=== PATIENT | male | born 1945 | race Caucasian/White ===

== ENCOUNTER 2019-10-13 11:49 | Emergency (ER) | payer BC ==
--- NOTE | 2019-10-13 12:19 | Emergency Department Record ---
History of Present Illness - General Chief complaint: Edema Stated complaint: SWOLLEN ARMS Time Seen by Provider: 10/13/19 12:08 Source: Patient Mode of Arrival: Wheelchair - History of Present Illness Initial comments: The patient states he has had 4-5 days of both arms and hands and both legs swelling. He is a stage IV COPD patient on home oxygen and steroid shots every 2 weeks. He also take HCTZ daily and has doubled his dose since yesterday because of the swelling. He states he has no fevers, chills, and no changes in sputum color or respiratory distress. He states he is breathing at his baseline. Many years ago he had a PE in his lungs. He had a "stroke in his eye" and takes a baby aspirin for that, but no other blood thinners. MD Complaint: Extremity swelling Onset/Timin Improves with: Nothing Worsens with: Nothing - Related Data Previous Rx's Medication Instructions Recorded Azithromycin [Zithromax] 500 mg PO DAILY #5 tab 10/13/19 Allergies Allergy/AdvReac Type Severity Reaction Status Date / Time ciprofloxacin [From Cipro] Allergy Severe DIFFICULTY Unverified 10/10/18 09:56 BREATHING ciprofloxacin HCl Allergy Severe DIFFICULTY Unverified 10/10/18 09:56 [From Cipro] BREATHING roflumilast [From DALIRESP] Allergy Intermediate DIFFICULTY Unverified 10/10/18 09:56 BREATHING levofloxacin [LEVOFLOXACIN] Allergy Unknown RASH Unverified 10/10/18 09:56 acetaminophen [From [place]] AdvReac Intermediate VOMITING Unverified 10/10/18 09:56 hydrocodone bitartrate AdvReac Intermediate VOMITING Unverified 10/10/18 09:56 [From [place]] Travel Screening - Travel/Exposure Within Last 30 Days Have you traveled within the last 30 days?: No - Travel/Exposure Within Last Year Have you traveled outside the [place] in the last year?: No - Additonal Travel Details Have you been exposed to anyone with a communicable illness?: No - Travel Symptoms Symptom Screening: None Review of Systems Reviewed: No additional complaints except as noted below Constitutional: Reports: As per HPI. Denies: Chills, Fever, Malaise, Night sweats, Weakness, Weight change Eyes: Reports: As per HPI. Denies: Eye discharge, Eye pain, Photophobia, Vision change ENT: Reports: As per HPI. Denies: Congestion, Dental pain, Ear pain, Epistaxis, Hearing loss, Throat pain Respiratory: Reports: As per HPI. Denies: Cough, Dyspnea, Hemoptysis, Stridor, Wheezes Cardiovascular: Reports: As per HPI. Denies: Arrhythmia, Chest pain, Dyspnea on exertion, Edema, Murmurs, Orthopnea, Palpitations, Paroxysmal nocturnal dyspnea, Rheumatic Fever, Syncope Endocrine: Reports: As per HPI. Denies: Fatigue, Heat or cold intolerance, Polydipsia, Polyuria Gastrointestinal: Reports: As per HPI. Denies: Abdominal pain, Constipation, Diarrhea, Hematemesis, Hematochezia, Melena, Nausea, Vomiting Genitourinary: Reports: As per HPI. Denies: Dysuria, Frequency, Hematuria, Incontinence, Retention, Testicular pain, Testicular mass, Urgency Musculoskeletal: Reports: As per HPI. Denies: Arthralgia, Back pain, Gout, Joint swelling, Myalgia, Neck pain Skin: Reports: As per HPI. Denies: Bruising, Change in color, Change in hair/nails, Lesions, Pruritus, Rash Neurological: Reports: As per HPI. Denies: Abnormal gait, Confusion, Headache, Numbness, Paresthesias, Seizure, Tingling, Tremors, Vertigo, Weakness Psychiatric: Reports: As per HPI. Denies: Anxiety, Auditory hallucinations, Depression, Homicidal thoughts, Suicidal thoughts, Visual hallucinations Hematological/Lymphatic: Reports: As per HPI. Denies: Anemia, Blood Clots, Easy bleeding, Easy bruising, Swollen glands Past Medical History - SOCIAL HISTORY Smoking Status: Former smoker Alcohol Use: None Drug Use: None - RESPIRATORY Hx Respiratory Disorders: Yes Hx Bronchitis: Yes Hx COPD: Yes Hx Pneumonia: Yes Hx Sleep Apnea: Yes Hx of CPAP: Yes ("supposed to") - CARDIOVASCULAR Hx Cardio Disorders: Yes Hx Hypertension: Yes - NEURO Hx Neuro Disorders: Yes Hx CVA: Yes - GI Hx GI Disorders: No - Hx Genitourinary Disorders: Yes Hx Prostate Problems: Yes ("implant in bladder") - ENDOCRINE Hx Endocrine Disorders: Yes Hx Diabetes: Yes Hx Thyroid Disease: No - MUSCULOSKELETAL Hx Musculoskeletal Disorders: Yes Comment:: 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 negative: Conjunctival injection, Nystagmus Pupils: Normal accommodation - ENT ENT exam: Normal exam, Mucous membranes moist, Normal external ear exam, Normal orophraynx, TM's normal bilaterally Ear exam: Normal external inspection. negative: External canal tenderness Nasal Exam: Normal inspection. negative: Discharge, Sinus tenderness Mouth exam: Normal external inspection, Tongue normal Teeth exam: Normal inspection. negative: Dental caries Throat exam: Normal inspection. negative: Tonsillar erythema, Tonsillar exudate - Neck Neck exam: Normal inspection, Full ROM. negative: Lymphadenopathy, Meningismus, Tenderness - Respiratory Respiratory exam: Decreased breath sounds, Prolonged expiratory, Other (Barrel chested, Increased AP diameter from endstage COPD). negative: Respiratory distress - Cardiovascular Cardiovascular Exam: Regular rate, Normal rhythm, Normal heart sounds - GI/Abdominal GI/Abdominal exam: Soft, Normal bowel sounds, Other (protruberant abdomen with NO tenderness). negative: Tenderness - Rectal Rectal exam: Deferred - exam: Deferred - Extremities Extremities exam: Normal inspection, Full ROM, Normal capillary refill, Pedal edema (bilateral 2+ pitting edema of legs up to below knees; also upper extremities are 1+edema, right greater than left arm, with friable thin skin from chronic steroid use). negative: Calf tenderness, Tenderness - Back Back exam: Reports: Normal inspection, Full ROM. Denies: Muscle spasm, Rash noted, Tenderness - Neurological Neurological exam: Alert, Normal gait, Oriented X3, Reflexes normal - Psychiatric Psychiatric exam: Normal affect, Normal mood - Skin Skin exam: Dry, Intact, Normal color, Warm Course Vital Signs 10/13/19 11:51 Temperature 97.5 F L Pulse Rate 98 H Respiratory 18 Rate Blood Pressure 147/113 Pulse Ox 99 - Reevaluation(s) Reevaluation #1: The patient states the last time he was in the hospital he was told he had something in his left chest that they wanted to do surgery on to remove, but his family doctor said don't. He said if it gets bigger he may need surgery on it but to do nothing now. 10/13/19 14:57 Reevaluation #2: Patient was taken to CT scan for his CTA. Contrast was injected yet it didn't show up on scan. No tissue induration and IV is flushing nicely. 250bolus NS and patient will be taken back for scan. BUN Cr and GFR normal. 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 This chart is to be scanned into this record. 10/13/19 16:19 Reevaluation #4: IV site was changed to other arm, 250CCNS bolus given and patient returned to CT scan. Left arm is nontender, no induration, and warm blankets applied. 10/13/19 16:38 10/13/19 17:31 Recheck of patient in CT scan. contrast on second attempt showing up well of chest scan. Recheck of other arm, Left side is now mildly indurated with loose skin around area and strong distal pulses, color, and temperature. Patient states he has no pain in that arm. Explained to patient that the contrast went into his arm tissue and that he is at risk of complications such as compartment syndrome, cellulitis, or other complications. It was recommended that he stay in the hospital overnight to observe that arm. Patient refuses admission. He does agree to recheck his arm here tomorrow, and to ice the area at home tonight. He lives with his 18 ear old granddaughter who will be home, and he drives himself places regularly. Patient agrees to ice his arm tonight and to come back tomorrow for recheck of his arm. Luzma HATCH examined arm with me and will recheck it tomorrow as she is the one professional here now who will also be here tomorrow. Awaiting CTA report. Medical Decision Making - Management Options MDM Management: No Additional Work-up Planned (left AMA) - Data Complexity MDM Data: Labs Ordered and/or Reviewed, X-Ray Ordered and/or Reviewed (Venous dopplers all negative times 4 extremities per radiologist.CTA chest No PE, multiple chronic changes, 4.2 by 2.1 posterior middle lobe consolidation of pneumonitis.), EKG Ordered and/or Reviewed (EKG: normal EKG at 84/min. no acutechanges) - Lab Data Result diagrams: 10/13/19 14:45 10/13/19 12:10 - EKG Data -: EKG Interpreted by Me EKG: No Acute Changes Disposition Disposition: Discharge Clinical Impression: Edema of all four extremities, Right arm pain, Pneumonitis Disposition: Against Medical Advice Condition: (1) Good Instructions: Leg Edema (ED) Additional Instructions: Ice to right upper arm area where contrast infiltrated. Recheck arm here tomorrow without fail. Take home one lasix pill to take when you get home. ZPack as directed until gone. Prescriptions: Azithromycin [Zithromax] 500 mg PO DAILY #5 tab Quality - Quality Measures Quality Measures: N/A - Blood Pressure Screening Does Patient Have Any of the Following: No Blood Pressure Classification: Hypertensive Reading Systolic Measurement: 147 Diastolic Measurement: 113 Screening for High Blood Pressure: < Pre-Hypertensive BP, F/U Documented > [G8950] Pre-Hypertensive Follow-up Interventions: Follow-up with rescreen every year., Lifestyle modifications., Referral to alternative/primary care provider. Lifestyle Modification: Weight Reduction, Dietary Approaches to Stop Hypertension (DASH) Eating Plan, Dietary Sodium Restriction, Increased Physical Activity, Moderation in alcohol (ETOH) consumption
[2019-10-13] MEDS ORDERED: IPRATROPIUM/ALBUTEROL (0.5MG/3MG) NEB INH ONE (12:24)
[2019-10-13 12:53] LABS: BLOOD UREA NITROGEN 22 mg/dL (8-23); CREATININE 0.9 mg/dL (0.7-1.2); EST GLOMERULAR FILTRATION RATE > 60 mL/min; TOTAL PROTEIN 6.5 g/dL (6.6-8.7)
[2019-10-13 12:55] LABS: GLUCOSE,RANDOM 108 mg/dL (74-109)
[2019-10-13 12:56] LABS: INR 0.9; PROTHROMBIN TIME (PATIENT) 9.6 SECONDS (9.5-12.1)
[2019-10-13 12:58] LABS: ALB/GLOB RATIO 1.2 (1.1-1.8); ALBUMIN 3.6 g/dL (4.0-5.0); ALKALINE PHOSPHATASE 80 U/L (40-129); ALT/SGPT 28 U/L (<41); AST/SGOT 34 U/L (10.0-50.0)
--- NOTE | 2019-10-13 14:50 | ULTRASOUND REPORT ---
EXAMINATION: Complete Right and Left Lower Extremity Venous Duplex Doppler Ultrasound EXAM DATE: 10/13/2019 2:47 PM TECHNIQUE: Real-time B-mode imaging with and without compression was used to evaluate the right and left lower extremity for deep venous thrombosis (DVT). Duplex Doppler with color and spectral Dopple r was used. INDICATION: swelling in legs COMPARISON: None Right Lower Extremity Findings: Right Common Femoral Vein: No DVT. Right Femoral Vein: No DVT. Right Popliteal Vein: No DVT. Right Proximal Deep Femoral Vein: No DVT. Right Posterior Tibial Veins: No DVT. Right Peroneal Veins: No DVT. Right proximal Greater Saphenous Vein: No thrombus. Left Lower Extremity Findings: Left Common Femoral Vein: No DVT. Left Femoral Vein: No DVT. Left Popliteal Vein: No DVT. Left Proximal Deep Femoral Vein: No DVT. Left Posterior Tibial Veins: No DVT. Left Peroneal Veins: No DVT. Left proximal Greater Saphenous Vein: No thrombus. Duplex Doppler: Spectral Doppler waveforms show bilateral normal respiratory phasicity in the common femoral veins. Additional Findings: None. IMPRESSION: There is no deep venous thrombosis in the visualized deep veins of the right or left lower extremity. Dictated by: Thomas Lacey MD on 10/13/2019 2:48 PM. .
--- NOTE | 2019-10-13 14:51 | ULTRASOUND REPORT ---
EXAMINATION: Complete Bilateral Upper Extremity Venous Duplex Doppler Ultrasound EXAM DATE: 10/13/2019 2:47 PM TECHNIQUE: Real-time B-mode imaging with and without compression was used to evaluate the right and left upper extremity for deep venous thrombosis (DVT). Duplex Doppler with color and spectral Dopple r was used. INDICATION: swelling in legs COMPARISON: None Right Upper Extremity Findings: Right Internal Jugular Vein: No thrombus. Right Subclavian Vein: No thrombus. Right Axillary Vein: No thrombus. Right Brachial Vein: No thrombus. Right Radial Vein: No thrombus. Right Ulnar Vein: No thrombus. Superficial Veins: Right Basilic Vein: No thrombus. Right Cephalic Vein: No thrombus. Left Upper Extremity Findings: Left Internal Jugular Vein: No thrombus. Left Subclavian Vein: No thrombus. Left Axillary Vein: No thrombus. Left Brachial Vein: No thrombus. Left Radial Vein: No thrombus. Left Ulnar Vein: No thrombus. Superficial Veins: Left Basilic Vein: No thrombus. Left Cephalic Vein: No thrombus. ADDITIONAL FINDINGS: Normal cardiac pulsatility is present in the subclavian veins. IMPRESSION: No evidence of DVT within either upper extremity. Dictated by: Thomas Lacey MD on 10/13/2019 2:49 PM. .
[2019-10-13 14:55] LABS: ABSOLUTE NEUTROPHIL COUNT 7.62; HEMATOCRIT 36.4 % (42.0-52.0); HEMOGLOBIN 10.3 gm/dl (14.0-18.0); MEAN CELL VOLUME 95.3 fl (81-97); MEAN CORPUSCULAR HGB CONC 28.3 g/dl (32-36); MEAN PLATELET VOLUME 9.1 fl (7.4-10.4); PLATELET COUNT 432 K/uL (130-400); RED BLOOD COUNT 3.82 M/uL (4.40-5.70); RED CELL DISTRIBUTION WIDTH 15.6 % (11.5-14.5); WHITE BLOOD COUNT W/O DIFF 12.4 K/uL (4.2-12.2)
[2019-10-13 15:00] LABS: MEAN CORPUSCULAR HEMOGLOBIN 26.9 pg (27-33)
[2019-10-13 15:19] LABS: URINE APPEARANCE CLEAR; URINE BILIRUBIN NEGATIVE (NEGATIVE); URINE COLOR YELLOW; URINE GLUCOSE (UA) NEGATIVE (NEGATIVE); URINE KETONE NEGATIVE (NEGATIVE)
[2019-10-13 15:20] LABS: URINE BLOOD NEGATIVE (NEGATIVE); URINE LEUKOCYTE ESTERASE NEGATIVE (NEGATIVE); URINE NITRITE NEGATIVE (NEGATIVE); URINE UROBILINOGEN 0.2 E.U./dL (0.20 - 1.00)
[2019-10-13 15:53] LABS: ANISOCYTOSIS 1+; PLATELET ESTIMATE INCREASED (NORMAL)
[2019-10-13] MEDS ORDERED: 0.9 % SODIUM CHLORIDE 500ML 250 ML IV SCH (16:30)
--- NOTE | 2019-10-13 17:47 | CT ANGIOGRAM REPORT ---
EXAMINATION: CT Angiography of the Thorax EXAM DATE: 10/13/2019 5:32 PM TECHNIQUE: Standard protocol CT angiogram images were obtained through the chest following the admini stration of intravenous contrast. Coronal and sagittal MIP 3-D reformations were performed. IV Contrast: The amount and type of contrast are recorded in the medical record. INDICATION: elevated d dimer. COMPARISON: Chest x-ray 08/04/2016 ENCOUNTER: Not applicable FINDINGS: Pulmonary Artery: No pulmonary embolism is present. Aorta: No thoracic aortic aneurysm or dissection is present. Moderate to extensive atheromatous dunham ge. Right Heart Strain: None. Heart : The heart is nonenlarged and there is no pericardial effusion. Moderate coronary artery calc ification. Lanette and Mediastinum: No lymphadenopathy. Lung Parenchyma: Extensive predominantly upper lobe centrilobular and bullous emphysema. There is co nsolidative change in the posterior medial right lower lobe measuring 4.2 x 2.1 cm transverse which m ay reflect pneumonitis. The upper lungs are clear. Central Airways: . Mild bronchiectasis in the lower lobes Pleural Effusion: None. Upper Abdomen: Unremarkable. Musculoskeletal and Chest Wall: Chronic moderate osteoporotic wedge deformity of the T6 vertebral bod y. No lytic or blastic lesion. IMPRESSION: 1. No PE identified. No thoracic aortic dissection. 2. Advanced emphysema. Moderate to focal consolidation in the posterior medial right lower lobe measu ring 4.2 x 2.1 cm which may reflect pneumonitis. 3. Moderate coronary artery calcification. 4. Mild bronchiectasis in the lower lobes. 5. Moderate chronic osteoporotic compression deformity of the T6 vertebral body. Dictated by: Db Landis MD on 10/13/2019 5:40 PM. .
[2019-10-13] MEDS ORDERED: FUROSEMIDE 40 MG TABLET PO ONE (17:58)
== END 2019-10-13 18:17 | disposition left against medical advice (07) ==
LOC: ER 11:49
DX: J18.1 Lobar pneumonia, unspecified organism (principal); J44.9 Chronic obstructive pulmonary disease, unspecified; M79.622 Pain in left upper arm; M79.621 Pain in right upper arm; I71.4 Abdominal aortic aneurysm, without rupture; Z86.711 Personal history of pulmonary embolism; I10 Essential (primary) hypertension; Z87.891 Personal history of nicotine dependence; E11.9 Type 2 diabetes mellitus without complications; Z99.81 Dependence on supplemental oxygen
CPT/HCPCS: 71275; 80053; 81003; 83880; 85027; 85379; 85610; 85730; 93005; 93010; 93970; 94640; 99284; J7040

== ENCOUNTER 2019-10-14 11:06 | Emergency (ER) | payer BC ==
--- NOTE | 2019-10-14 11:37 | Emergency Department Record ---
History of Present Illness - General Chief Complaint: Recheck - Other Stated Complaint: SWELLING HANDS FEET Time Seen by Provider: 10/14/19 11:17 Source: Patient, RN notes reviewed - History of Present Illness Initial Comments: pateint her for recheck of his left arm and IV contrast went SQ and his left arm is edematous more than yesterday and no left arm pain at rest and no pain in the arm with moving his ringers or wrist and there is some vesicles on the ulnar side of the arm. His other extremities are also a edematous and that was happening before the CTA Chest. breathing is at baseline and he uses 2 liters at rest and 4 liter with activity Onset/Timin -: Days(s) Initial Visit For: Other Returns Today for: Other Symptoms Since Prior Visit: No new symptoms, Worsening swelling Associated Symptoms: None - Related Data Previous Rx's Medication Instructions Recorded Azithromycin [Zithromax] 500 mg PO DAILY #5 tab 10/13/19 Allergies Allergy/AdvReac Type Severity Reaction Status Date / Time ciprofloxacin [From Cipro] Allergy Severe DIFFICULTY Unverified 10/10/18 09:56 BREATHING ciprofloxacin HCl Allergy Severe DIFFICULTY Unverified 10/10/18 09:56 [From Cipro] BREATHING roflumilast [From DALIRESP] Allergy Intermediate DIFFICULTY Unverified 10/10/18 09:56 BREATHING levofloxacin [LEVOFLOXACIN] Allergy Unknown RASH Unverified 10/10/18 09:56 acetaminophen [From [place]] AdvReac Intermediate VOMITING Unverified 10/10/18 09:56 hydrocodone bitartrate AdvReac Intermediate VOMITING Unverified 10/10/18 09:56 [From [place]] Travel Screening - Travel/Exposure Within Last 30 Days Have you traveled within the last 30 days?: No Review of Systems Reviewed: No additional complaints except as noted below Constitutional: Reports: As per HPI. Denies: Chills, Fever, Malaise, Night sweats, Weakness, Weight change Eyes: Reports: As per HPI. Denies: Eye discharge, Eye pain, Photophobia, Vision change ENT: Reports: As per HPI. Denies: Congestion, Dental pain, Ear pain, Epistaxis, Hearing loss, Throat pain Respiratory: Reports: As per HPI. Denies: Cough, Dyspnea, Hemoptysis, Stridor, Wheezes Cardiovascular: Reports: As per HPI. Denies: Arrhythmia, Chest pain, Dyspnea on exertion, Edema, Murmurs, Orthopnea, Palpitations, Paroxysmal nocturnal dyspnea, Rheumatic Fever, Syncope Endocrine: Reports: As per HPI. Denies: Fatigue, Heat or cold intolerance, Polydipsia, Polyuria Gastrointestinal: Reports: As per HPI. Denies: Abdominal pain, Constipation, Diarrhea, Hematemesis, Hematochezia, Melena, Nausea, Vomiting Genitourinary: Reports: As per HPI. Denies: Dysuria, Frequency, Hematuria, Incontinence, Retention, Testicular pain, Testicular mass, Urgency Musculoskeletal: Reports: As per HPI, Other (arm is swollen). Denies: Arthralgia, Back pain, Gout, Joint swelling, Myalgia, Neck pain Skin: Reports: As per HPI. Denies: Bruising, Change in color, Change in guzman ir/nails, Lesions, Pruritus, Rash Neurological: Reports: As per HPI. Denies: Abnormal gait, Confusion, Headache, Numbness, Paresthesias, Seizure, Tingling, Tremors, Vertigo, Weakness Psychiatric: Reports: As per HPI. Denies: Anxiety, Auditory hallucinations, Depression, Homicidal thoughts, Suicidal thoughts, Visual hallucinations Hematological/Lymphatic: Reports: As per HPI. Denies: Anemia, Blood Clots, Easy bleeding, Easy bruising, Swollen glands Past Medical History - SOCIAL HISTORY Smoking Status: Former smoker - RESPIRATORY Hx Respiratory Disorders: Yes Hx Bronchitis: Yes Hx COPD: Yes Hx Pneumonia: Yes Hx Sleep Apnea: Yes Hx of CPAP: Yes ("supposed to") - CARDIOVASCULAR Hx Cardio Disorders: Yes Hx Hypertension: Yes - NEURO Hx Neuro Disorders: Yes Hx CVA: Yes - GI Hx GI Disorders: No - Hx Genitourinary Disorders: Yes Hx Prostate Problems: Yes ("implant in bladder") - ENDOCRINE Hx Endocrine Disorders: Yes Hx Diabetes: Yes Hx Thyroid Disease: No - MUSCULOSKELETAL Hx Musculoskeletal Disorders: Yes 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 negative: External canal tenderness Nasal Exam: Normal inspection. negative: Discharge, Sinus tenderness Mouth exam: Normal external inspection, Tongue normal Teeth exam: Normal inspection. negative: Dental caries Throat exam: Normal inspection. negative: Tonsillar erythema, Tonsillar exudate - Neck Neck exam: Normal inspection, Full ROM. negative: Tenderness - Respiratory Respiratory exam: Normal lung sounds bilaterally. negative: Respiratory distress - Cardiovascular Cardiovascular Exam: Regular rate, Normal rhythm, Normal heart sounds - GI/Abdominal GI/Abdominal exam: Soft, Normal bowel sounds. negative: Tenderness - Rectal Rectal exam: Deferred - exam: Deferred - Extremities Extremities exam: Full ROM, Normal capillary refill, Other (pulse is good and no pain when he is not moving his arm , no paresthesias). negative: Tenderness - Back Back exam: Reports: Normal inspection, Full ROM. 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 per charts from [place] Medical Decision Making - Lab Data Result diagrams: 10/14/19 11:35 10/14/19 11:35 Disposition Clinical Impression: Arm edema COPD (chronic obstructive pulmonary disease) Qualifiers: COPD type: COPD with acute lower respiratory infection Qualified Code(s): J44.0 - Chronic obstructive pulmonary disease with (acute) lower respiratory infection Pneumonia Qualifiers: Pneumonia type: due to unspecified organism Laterality: right Lung location: lower lobe of lung Qualified Code(s): J18.9 - Pneumonia, unspecified organism Disposition: Home, Self-Care Condition: (1) Good Instructions: Wound Infection (ED), Wound Healing and Your Diet (ED) Additional Instructions: follow up with Dr sharif in the office tomorrow at 9 am elevate his arm continue zithromycin Forms: Patient Portal Access Time of Disposition: 12:16 Quality - Quality Measures Quality Measures: N/A - Blood Pressure Screening Does Patient Have Any of the Following: No Blood Pressure Classification: Normal BP Reading Systolic Measurement: 96 Diastolic Measurement: 69 Screening for High Blood Pressure: < Normal BP, F/U Not Required > [G8783]
[2019-10-14 11:43] LABS: ABSOLUTE NEUTROPHIL COUNT 10.26; HEMATOCRIT 33.2 % (42.0-52.0); HEMOGLOBIN 9.3 gm/dl (14.0-18.0); MEAN CELL VOLUME 95.4 fl (81-97); MEAN CORPUSCULAR HEMOGLOBIN 26.7 pg (27-33); MEAN PLATELET VOLUME 8.8 fl (7.4-10.4); PLATELET COUNT 407 K/uL (130-400); RED BLOOD COUNT 3.48 M/uL (4.40-5.70); RED CELL DISTRIBUTION WIDTH 15.5 % (11.5-14.5); WHITE BLOOD COUNT W/O DIFF 13.6 K/uL (4.2-12.2)
[2019-10-14 12:08] LABS: HYPOCHROMIA 1+
[2019-10-14 12:14] LABS: BLOOD UREA NITROGEN 24 mg/dL (8-23); CREATININE 1.2 mg/dL (0.7-1.2); EST GLOMERULAR FILTRATION RATE > 60 mL/min; GLUCOSE,RANDOM 182 mg/dL (74-109)
== END 2019-10-14 12:26 | disposition home or self-care (01) ==
LOC: ER 11:06
DX: R60.0 Localized edema (principal); M79.632 Pain in left forearm; J18.9 Pneumonia, unspecified organism; J44.0 Chronic obstructive pulmonary disease with (acute) lower respiratory infection; I71.4 Abdominal aortic aneurysm, without rupture; I10 Essential (primary) hypertension; E11.9 Type 2 diabetes mellitus without complications; Z99.81 Dependence on supplemental oxygen; Z87.891 Personal history of nicotine dependence
CPT/HCPCS: 80048; 85027; 99283